=== PATIENT | female | born 1955 | race Caucasian/White ===

== ENCOUNTER 2018-05-12 17:27 | Inpatient (IN) | payer BC ==
[~2018-05-12] VITALS: Ht 162.6 cm; Wt 99.3 kg
[2018-05-12 18:33] VITALS: BP 136/76
[2018-05-12] MEDS ORDERED: ZOLPIDEM 5 MG TABLET. PO PRN (18:45)
[2018-05-12 18:59] LABS: BASO # 0.1 x10^3/uL (0.0-0.2); BASO % 1 % (0-3); EOS # 0.4 x10^3/uL (0.0-0.7); EOS % 3 % (0-3); HEMATOCRIT 37.1 % (36.0-47.0); HEMOGLOBIN 12.3 g/dL (12.0-15.5); LYMPH # 1.6 x10^3/uL (1.0-4.8); LYMPH % 14 % (24-48); MEAN CORPUSCULAR HEMOGLOBIN 30 pg (25-35); MEAN CORPUSCULAR HGB CONC 33 g/dL (31-37); MEAN CORPUSCULAR VOLUME 90 fL (79-100); MONO # 0.8 x10^3/uL (0.0-1.1); MONO % 7 % (0-9); NEUT # 8.8 x10^3uL (1.8-7.7); NEUT % 75 % (31-73); PLATELET COUNT 296 x10^3/uL (140-400); RED BLOOD COUNT 4.14 x10^6/uL (3.50-5.40); RED CELL DISTRIBUTION WIDTH 13.4 % (11.5-14.5); WHITE BLOOD COUNT 11.7 x10^3/uL (4.0-11.0)
[2018-05-12 19:00] VITALS: BP 136/76
[2018-05-12] MEDS ORDERED: BUPR300T4 PO (19:08)
[2018-05-12] MEDS ORDERED: BUPR-192 PO (19:08)
[2018-05-12 19:10] LABS: BILIRUBIN,URINE NEG (NEG); CLARITY,URINE HAZY; COLOR,URINE YELLOW; GLUCOSE,URINE NEG (NEG); NITRITE,URINE NEG (NEG); UROBILINOGEN,URINE 0.2 mg/dL (0.2 mg/dL)
[2018-05-12 19:11] LABS: AMORPHOUS SEDIMENT,UR PRESENT /HPF; BACTERIA,URINE FEW /HPF (0-FEW); SQUAMOUS EPITHELIAL CELL,UR FEW /LPF; WBC,URINE >40 /HPF (0-4)
[2018-05-12 19:13] LABS: ALBUMIN 3.1 g/dL (3.4-5.0); ALBUMIN/GLOBULIN RATIO 0.9 (1.0-1.7); CALCIUM 8.1 mg/dL (8.5-10.1); CREATININE 0.8 mg/dL (0.6-1.0); GFR 72.2; POTASSIUM 4.3 mmol/L (3.5-5.1); TOTAL BILIRUBIN 0.5 mg/dL (0.2-1.0); TOTAL PROTEIN 6.5 g/dL (6.4-8.2)
[2018-05-12] MEDS: MORPHINE SULFATE 2 MG/ML DISP.SYRIN. IV PRN ×2 (19:55→22:09)
[2018-05-12] MEDS: LACTOBACILLUS RHAMNOSUS GG 1 CAPSULE. PO SCH (19:55)
[2018-05-12] MEDS: ONDANSETRON ODT 4 MG TAB.RAPDIS PO PRN (20:04)
[2018-05-12 20:12] VITALS: BP 137/76
--- NOTE | 2018-05-12 21:09 | RAD ---
Abdominal and Pelvis CT, Without Contrast: History: Severe left-sided abdominal pain. Comparison: November 29, 2011. Procedure: Axial images are obtained of the abdomen and pelvis, without IV or oral contrast. CT Abdomen without Contrast: Findings: Evaluation of solid organs is limited without contrast. Evaluation of stomach and bowel is limited without oral contrast. Liver: Normal. Spleen: Normal. Pancreas: Normal. Adrenal Glands: Normal. Kidneys: There is a 6 mm stone left UPJ with moderate left hydronephrosis. There is additional nonobstructive stone in each renal pelvis bilaterally. There is no free air or free fluid. There is no lymphadenopathy. Impression: Please see CT Pelvis without Contrast. End Impression. CT Pelvis without Contrast: Findings: The urinary bladder is mostly collapsed. There is no free fluid. There is no lymphadenopathy. There is no pericolonic inflammation identified. The 18 mm fat-containing lesion in the right pelvis was present previously is unchanged. This could be an ovarian teratoma. The appendix is normal. Impression: 6 mm stone left UPJ with moderate left hydronephrosis. End impression PQRS Compliance Statement: One or more of the following individualized dose reduction techniques were utilized for this examination: 1. Automated exposure control 2. Adjustment of the mA and/or kV according to patient size 3. Use of iterative reconstruction technique Electronically signed by: John Calhoun III, MD (05/12/2018 9:05 PM) [facility]
[2018-05-12] MEDS: IV NORMAL SALINE 1,000ML 1,000 ML IV SCH (22:09)
[2018-05-13 00:08] VITALS: BP 132/69
[2018-05-13] MEDS: MORPHINE SULFATE 2 MG/ML DISP.SYRIN. IV PRN ×4 (00:08→10:14)
[2018-05-13] MEDS ORDERED: ONDA4TAB11 PO (00:53)
[2018-05-13] MEDS ORDERED: NITR100C6 PO (00:53)
[2018-05-13] MEDS: ONDANSETRON ODT 4 MG TAB.RAPDIS PO PRN (03:58)
[2018-05-13] MEDS: IV NORMAL SALINE 1,000ML 1,000 ML IV SCH (05:13)
[2018-05-13 05:24] VITALS: BP 121/73
[2018-05-13 06:34] LABS: BASO # 0.1 x10^3/uL (0.0-0.2); BASO % 1 % (0-3); EOS # 0.4 x10^3/uL (0.0-0.7); EOS % 4 % (0-3); HEMATOCRIT 33.7 % (36.0-47.0); HEMOGLOBIN 11.3 g/dL (12.0-15.5); LYMPH # 1.8 x10^3/uL (1.0-4.8); LYMPH % 20 % (24-48); MEAN CORPUSCULAR HEMOGLOBIN 30 pg (25-35); MEAN CORPUSCULAR HGB CONC 34 g/dL (31-37); MEAN CORPUSCULAR VOLUME 88 fL (79-100); MONO # 0.7 x10^3/uL (0.0-1.1); MONO % 8 % (0-9); NEUT # 6.1 x10^3uL (1.8-7.7); NEUT % 68 % (31-73); PLATELET COUNT 273 x10^3/uL (140-400); RED BLOOD COUNT 3.81 x10^6/uL (3.50-5.40); WHITE BLOOD COUNT 9.1 x10^3/uL (4.0-11.0)
[2018-05-13 06:42] LABS: CALCIUM 7.8 mg/dL (8.5-10.1); CREATININE 0.8 mg/dL (0.6-1.0); GFR 72.2; POTASSIUM 3.6 mmol/L (3.5-5.1)
[2018-05-13] MEDS: LACTOBACILLUS RHAMNOSUS GG 1 CAPSULE. PO SCH (08:15)
[2018-05-13 11:44] VITALS: BP 137/69
--- NOTE | 2018-05-13 15:43 | DS ---
DATE OF DISCHARGE: 05/13/2018 HOSPITAL COURSE: The patient being having flank pain as well as recurrent urinary tract infection. It was felt to be treated as an outpatient. The pain became increasingly worse. CAT scan showed a 6 mm stone in the left UPJ with moderate left hydronephrosis. The patient is also on IV antibiotic therapy outpatient, urine did show a significant urinary tract infection. White count is slightly elevated. She was placed on IV antibiotic therapy. She also had elevated liver enzymes, which I assume will be evaluated further down there and an elevated D-dimer. The patient will be transferred for Urology consultation. IMPRESSION: Hydronephrosis, left urinary tract infection, pyelonephritis, Escherichia coli, elevated D-dimer, abnormal elevated liver enzymes. The patient will be monitored, transferred via EMS down to [facility] for urological and possible further evaluation on her elevated liver enzymes as well. She will be kept n.p.o. till the urologist see her and further evaluation is indicated. ADE SILVESTRE MD DR: TOMMY/nts JOB#: [id number] / [id number]
== END 2018-05-13 15:17 | disposition short-term general hospital (02) | DRG 690 ==
LOC: 1 SOUTH 17:46
PROVIDERS: ADMIT Family Medicine; ATTEND Family Medicine
DX: N13.6 Pyonephrosis (principal); B96.20 Unspecified Escherichia coli [E. coli] as the cause of diseases classified elsewhere; R79.1 Abnormal coagulation profile; Z80.51 Family history of malignant neoplasm of kidney; Z80.0 Family history of malignant neoplasm of digestive organs; Z88.2 Allergy status to sulfonamides; Z79.899 Other long term (current) drug therapy
CPT/HCPCS: 36415; 74176; 80048; 80053; 81001; 83605; 85025; 85379; 87040; 87086; J0696; J1956; J2270; J3010; Q0162; J7030

== ENCOUNTER → 2018-08-21 | Outpatient (CLI) | payer BC ==
[~2018-08-21] MED LIST: BUPR-192 PO; BUPR300T4 PO; NITR100C6 PO; ONDA4TAB11 PO
--- NOTE | 2018-08-21 15:25 | RAD ---
EXAM: Renal sonogram. HISTORY: Nephrolithiasis. TECHNIQUE: Sonographic imaging of the kidneys and bladder was performed. COMPARISON: CT dated 05/12/2018. FINDINGS: The right kidney measures 11.8 cm [id number]. Left kidney measures 11.3 cm [id number]. No solid or cystic renal lesion is seen. There is no hydronephrosis. The urinary bladder volume is 64 cc. The ureteral jets are not seen during the exam. There is a 10 mm echogenic focus without posterior shadowing involving the mid zone of the left kidney, possibly artifactual or due to a nonobstructing stone. The previously demonstrated right hydronephrosis is no longer seen. IMPRESSION: 1. No evidence of hydronephrosis. 2. 10 mm echogenic focus within the left kidney, possibly artifactual or due to a nonobstructing stone. 3. Nonvisualization of the ureteral jets during the exam. The urinary bladder is otherwise unremarkable. Electronically signed by: Eugenia Rojas MD (08/21/2018 3:23 PM) [id number]
== END | disposition home or self-care (01) ==
LOC: US 09:56
PROVIDERS: ATTEND Physician Assistant Medical
DX: N20.2 Calculus of kidney with calculus of ureter (principal)
CPT/HCPCS: 76770

== ENCOUNTER → 2019-03-13 | Outpatient (CLI) | payer BC, MEDICARE ==
--- NOTE | 2019-03-13 15:11 | RAD ---
EXAM: Abdomen, single view. HISTORY: Pain. COMPARISON: None. FINDINGS: Frontal views of the abdomen and pelvis are obtained. There is a nonobstructive bowel gas pattern. There is gas and stool within the colon. No dilated loop of bowel seen. There is a 2.0 mm calcification overlying the mid zone of the right kidney, stable compared to the prior CT. There is suspected faint visualization of a 12 mm stone within the lower pole of the left kidney, also stable in appearance. The previously demonstrated left ureteral stone is not seen radiographically. IMPRESSION: 1. Bilateral nephrolithiasis. The largest stones demonstrated on the prior CT are not appreciably changed, allowing for differences in imaging modality. The previously demonstrated left ureteral stone is not seen radiographically. 2. Nonobstructive bowel gas pattern. Electronically signed by: Eugenia Rojas MD (03/13/2019 3:09 PM) [email or web address]
== END | disposition home or self-care (01) ==
LOC: DXRAD 08:28
PROVIDERS: ATTEND Urology
DX: N20.0 Calculus of kidney (principal); Z87.442 Personal history of urinary calculi
CPT/HCPCS: 74018

== ENCOUNTER → 2020-03-19 | Outpatient (CLI) | payer MEDICARE, BC ==
[~2020-03-19] MED LIST changes: -BUPR300T4 PO; +BUPR300T92 PO; +ONDA-84 PO; -ONDA4TAB11 PO
--- NOTE | 2020-03-19 16:38 | RAD ---
Bone densitometry 03/19/2020 10:30 AM Indication: Reason: SCREENING / Spl. Instructions: / History: Comparison Study: None. Discussion: Bone Densitometry was performed with dual photon absorption of the lumbar spine and proximal right femur.. Lumbar Spine: Bone average density is 0.993g/cm2 for L1-L4. T-Score is -1.6. Right femoral neck: Bone average density is 0.752 g/cm2. T-Score is -2.1. IMPRESSION: Osteopenia Note: Definitions established by the World Health Organization: Normal: T-score is -1.0 or above. Osteopenia: T-score is between -1.0 and -2.5. Osteoporosis: T-score is -2.5 or below. Electronically signed by: Brown Simeon MD (03/19/2020 4:35 PM) [id number]
--- NOTE | 2020-03-20 11:52 | RAD ---
DATE: 03/19/2020 EXAM: MAMMO DOMINIQUE SCREENING BILATERAL HISTORY: Screening COMPARISON: 07/17/2014 This study was interpreted with the benefit of Computerized Aided Detection (CAD). Breast Density: The breast parenchyma shows scattered fibroglandular densities. Breast parenchyma level B. FINDINGS: Multiple bilateral benign-appearing masses are unchanged likely intramammary lymph nodes. There is no suspicious mass, suspicious calcification, or architectural distortion. IMPRESSION: No evidence of malignancy in either breast. BI-RADS CATEGORY: 1 NEGATIVE RECOMMENDED FOLLOW-UP: Annual screening mammogram. PQRS compliance statement: Patient information was entered into a reminder system with a target due date 03/20/2020 for the next mammogram. Mammography is a sensitive method for finding small breast cancers, but it does not detect them all and is not a substitute for careful clinical examination. A negative mammogram does not negate a clinically suspicious finding and should not result in delay in biopsying a clinically suspicious abnormality. "Our facility is accredited by the [employer] Mammography Program." JOSE
== END ==
LOC: MAMMO 10:07
PROVIDERS: ATTEND Physician Assistant Medical
DX: Z12.31 Encounter for screening mammogram for malignant neoplasm of breast (principal); Z13.820 Encounter for screening for osteoporosis; N95.1 Menopausal and female climacteric states; M85.88 Other specified disorders of bone density and structure, other site
CPT/HCPCS: 77063; 77067; 77080

== ENCOUNTER → 2020-03-19 | Outpatient (CLI) | payer MEDICARE, BC ==
--- NOTE | 2020-03-19 15:52 | RAD ---
EXAM: KUB 03/19/2020 12:00 AM CLINICAL INDICATION:Kidney stone COMPARISON:Abdominal radiograph 03/13/2019 TECHNIQUE:AP supine view the abdomen FINDINGS:A 2.1 x 0.9 cm calcification in the right kidney is unchanged. Probable punctate calculus in the inferior left renal pole. Bowel gas pattern is nonspecific and nonobstructive. Normal volume of stool. No acute osseous abnormality. IMPRESSION:Unchanged bilateral nephrolithiasis, with large calculus on the right. Electronically signed by: Aliyah Kumar MD (03/19/2020 3:50 PM) [id number]
== END ==
LOC: DXRAD 10:17
PROVIDERS: ATTEND Urology
DX: N20.0 Calculus of kidney (principal); Z87.442 Personal history of urinary calculi
CPT/HCPCS: 74018

== ENCOUNTER → 2021-03-20 | Outpatient (CLI) | payer MEDICARE, BC ==
[~2021-03-20] MED LIST changes: +ASPI-630 PO; -BUPR-192 PO; +BUPR150T21 PO; +SIMV40TA18 PO; +vitamin d
--- NOTE | 2021-03-20 10:01 | RAD ---
EXAM: Bilateral knees, 3 views. HISTORY: Pain. COMPARISON: None. FINDINGS: 3 views of both knees are obtained. There is left greater than right medial compartment nissa nt space narrowing and spurring. There is left patellofemoral compartment joint space narrowing, spur ring and degenerative subchondral cyst formation. There is minimal left genu varus. There is no joint effusion. IMPRESSION: 1. 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 2. Mild right medial compartment osteoarthritis. Electronically signed by: Eugenia Rojas MD (03/20/2021 9:59 AM) [id number]
[2021-03-24 14:03] VITALS: BP 125/60
== END ==
LOC: RAD 14:00
PROVIDERS: ATTEND Orthopaedic Surgery
DX: M17.0 Bilateral primary osteoarthritis of knee (principal); M21.162 Varus deformity, not elsewhere classified, left knee; M76.892 Other specified enthesopathies of left lower limb, excluding foot; M76.891 Other specified enthesopathies of right lower limb, excluding foot
CPT/HCPCS: 73565; 73560-50

== ENCOUNTER → 2021-03-20 | Outpatient (CLI) | payer MEDICARE, BC | LOC: LAB 13:27 | PROVIDERS: ATTEND Internal Medicine Gastroenterology | DX: Z01.812 Encounter for preprocedural laboratory examination (principal); Z20.822 Contact with and (suspected) exposure to COVID-19; Z80.0 Family history of malignant neoplasm of digestive organs | CPT/HCPCS: U0003 ==

== ENCOUNTER → 2021-03-24 | Day surgery (SDC) | payer MEDICARE, BC ==
[~2021-03-24] MED LIST changes: +IPRATRPIUM/ALBUTEROL 0.5/2.5MG 3 ML NEBU. NEB PRN; +IV RINGERS SOLUTION,LACTATED 1,000 ML IV SCH; +LIDOCAINE 2% PF 5 ML VIAL. ONE; +MIDAZOLAM HCL PF 2 MG/2 ML VIAL. IV ONE; +ONDANSETRON PF 4 MG/2 ML VIAL. IV PRN; +PROPOFOL 10,000 MCG/ML (20ML) VIAL IV ONE
[2021-03-24 14:03] VITALS: BP 125/60
== END | disposition home or self-care (01) ==
LOC: SURG 12:20
PROVIDERS: ATTEND Internal Medicine Gastroenterology
DX: Z12.11 Encounter for screening for malignant neoplasm of colon (principal); K57.30 Diverticulosis of large intestine without perforation or abscess without bleeding; K63.5 Polyp of colon; K63.89 Other specified diseases of intestine; E78.5 Hyperlipidemia, unspecified; F32.9 Major depressive disorder, single episode, unspecified; Z87.440 Personal history of urinary (tract) infections; Z79.899 Other long term (current) drug therapy; Z98.890 Other specified postprocedural states; Z79.82 Long term (current) use of aspirin; Z88.2 Allergy status to sulfonamides; Z80.0 Family history of malignant neoplasm of digestive organs
CPT/HCPCS: 45385; J2001; J2704; J7120